=== PATIENT | female | born 1985 | race Hispanic/Latino ===

== ENCOUNTER 2016-07-04 21:27 | Emergency (ER) | payer MEDICAID ==
[2016-07-04] MEDS ORDERED: LIDOCAINE VISCOUS 2% 15 ML UDC ONE ×2 (21:47→22:30)
[2016-07-04] MEDS ORDERED: ONDANSETRON HCL 4 MG/2 ML VIAL ONE ×2 (21:47→23:26)
[2016-07-04] MEDS ORDERED: FAMOTIDINE IN SALINE, ISO-OSM 50 ML IV ONE (21:47)
[2016-07-04] MEDS ORDERED: MAG-AL PLUS XS SUSP 30 ML UDC ONE ×2 (21:47→22:30)
[2016-07-04 22:15] LABS: URINE APPEARANCE CLOUDY; URINE BILIRUBIN 1.0 mg/100ml (2+) (NEGATIVE); URINE BLOOD 250 Ery/uL (3+) (NEGATIVE); URINE COLOR YELLOW; URINE GLUCOSE 100mg/dL (NEGATIVE); URINE KETONE 10mg/dL (1+) (NEGATIVE); URINE LEUKOCYTE ESTERASE TRACE (NEGATIVE); URINE NITRITE NEGATIVE (NEGATIVE); URINE PH 8.5 (5-7); URINE PROTEIN 100mg/dL (2+) (NEG - TRACE); URINE SPECIFIC GRAVITY 1.015 (0.001-1.035); URINE UROBILINOGEN 4mg/dL (NEG-1mg/dL); URINE WBC 0-4/hpf (0-4/hpf)
[2016-07-04 22:16] LABS: URINE AMORPHOUS SEDIMENT UP TO 25%/lpf (Up to 25%); URINE BACTERIA >50 ORGANISMS/hpf (<10/hpf); URINE MUCUS UP TO 50%/lpf (Up to 25%)
[2016-07-04 22:27] LABS: BASOPHILS 0.2 % (0.0-2.0); EOSINOPHILS 2.5 % (0.0-6.0); EOSINOPHILS# 0.3 X 10^3uL (0.0-0.4); HEMOGLOBIN 16.5 g/dL (12.0-16.0); LYMPHOCYTES# 1.1 X 10^3uL (0.8-3.8); MEAN CELL VOLUME 88.8 fL (84.0-102.0); MEAN CORPUS. HGB CONCENTRATION 34.4 g/dL (32.0-36.0); MEAN CORPUSCULAR HEMOGLOBIN 30.5 pg (29.0-35.0); MEAN PLATELET VOLUME 8.9 fL (7.4-10.4); MONOCYTES 4.9 % (2.0-10.0); MONOCYTES# 0.5 X 10^3uL (0.2-1.0); NEUTROPHILS 82.4 % (54.0-75.0); NEUTROPHILS# 8.9 X 10^3uL (2.6-6.7); PLATELET COUNT 251 X 10^3uL (130-440); RED CELL DISTRIBUTION WIDTH 11.9 % (11.5-14.5); WHITE BLOOD COUNT 10.8 X 10^3uL (3.9-10.7)
[2016-07-04 22:38] LABS: ALBUMIN 4.8 g/dL (3.5-5.0); ALKALINE PHOSPHATASE 78 U/L (38-126); ALT 62 U/L (9-52); AST 84 U/L (14-36); BILIRUBIN, DIRECT 0.4 mg/dL (0.0-0.4); BLOOD UREA NITROGEN 15 mg/dL (7-17); CALCIUM 9.3 mg/dL (8.4-10.2); CHLORIDE 104 mmol/L (98-107); CREATININE 0.7 mg/dL (0.5-1.0); EST GLOMERULAR FILTRATION RATE > 60 mL/min; GLUCOSE 101 mg/dL (70-100); LIPASE 108 U/L (23-300); POTASSIUM 3.8 mmol/L (3.5-5.1); SODIUM 144 mmol/L (137-145); TOTAL PROTEIN 8.4 g/dL (6.3-8.2)
[2016-07-04] MEDS ORDERED: HYDROmorphone HCL 1 MG/ML SYR ONE (22:54)
[2016-07-04] MEDS ORDERED: ONDANSETRON ODT PREPAC 4 MG TAB.RAPDIS PO ONE (23:10)
[2016-07-04] MEDS ORDERED: HYDROcodone/APAP PREPAC 5/325 1 TAB TABLET PO ONE (23:11)
--- NOTE | 2016-07-04 23:58 | ER NURSING DOCUMENTATION ---
Nurse's Notes [facility] Name:Romina Haq Age:31 yrs Sex:Female :1985 Arrival Date:07/04/2016 Time:21:27 Bed1 Private MD:Bhumika Mccord Diagnosis:Abdominal Pain, Epigastric Presentation: 07/04 21:29 Acuity: ROMINA 3 21:42 Presenting complaint: Patient states: Pt has had epigastric pain since this AM that is rh persistent with nausea. Transition of care: Home. 21:42 Method Of Arrival: Walk In Triage Assessment: 21:42 General: Appears in no apparent distress, Behavior is cooperative. Pain: Complains of rh pain in epigastric area, right upper quadrant and left upper quadrant. EENT: Oral mucosa is moist. Neuro: Level of Consciousness is awake, alert, obeys commands. Cardiovascular: Capillary refill < 3 seconds Chest pain is denied. Respiratory: Airway is patent. GI: Abdomen is non- distended Abdomen is tender to palpation in epigastric area, right upper quadrant and left upper quadrant Reports nausea, Denies diarrhea, vomiting. : Denies burning with urination, urinary frequency. Derm: Skin is intact, is healthy with good turgor, Skin is pink, warm & dry. Musculoskeletal:. AUDIO DIRECTOR: 21:43 LMP 07/04/2016 Historical: - Allergies: No known drug Allergies; - Home Meds: 1. None - PMHx: None; - PSHx: None; - Tetanus: < 10 years. - Ebola Screening: : Patient negative for fever greater than or equal to 101.5 degrees Fahrenheit, and additional compatible Ebola Virus Disease symptoms. - Immunization history: Flu Vaccine None. - Social history: Smoking status: Patient states was never smoker of tobacco. Screenin:45 Infectious Disease Risk None. Abuse screen: Denies threats or abuse. Denies injuries rh from another. Nutritional screening: No deficits noted. Assessment: 21:45 See Triage Assessment done by same RN. Vital Signs: 19:40 BP 115 / 75; Pulse 78; Resp 16; Temp 97.9; Pulse Ox 98% on R/A; Weight 58.97 kg; Height rh 5 ft. 0 in. (152.40 cm); Pain 9/10; 23:56 BP 103 / 48; Pulse 68; Resp 15; Pulse Ox 97% on R/A; Pain 4/10; rh 19:40 Body Mass Index 25.39 (58.97 kg, 152.40 cm) rh ED Course: 21:28 Patient arrived in ED. em2 21:28 Bhumika Mccord MD is Private Physician. em2 21:29 Rachael Hargrove is Primary Nurse. rh 21:29 Triage completed. rh 21:39 Mehrdad Kay MD is Attending Physician. sc 21:39 Inserted saline lock: 20 gauge in right antecubital area and blood collected. la 21:40 Notified ED Physician of patient's arrival and chief complaint. Dr. Kay notified. rh 21:45 Valuables Remains with patient Patient has correct armband on for positive rh identification. Bed in low position. Call light in reach. Side rails up X 1. Family accompanied patient. 22:48 Bhumika Mccord MD is Referral Physician. sc Administered Medications: 21:42 Drug: Zofran 4 mg; Route: IVP; Infused Over: 2 mins; Site: right antecubital; rh 22:07 Follow up: Response: Nausea is decreased rh 21:45 Drug: GI Cocktail w/o Donnatol - (Maalox Suspension 30 ml, Lidocaine Liquid 2 % 15 ml); rh Route: PO; 22:07 Follow up: Response: Pain is decreased rh 21:45 Drug: Pepcid 20 mg; Route: IVPB; Site: right antecubital; rh 22:07 Follow up: IV Status: Completed infusion; IV Intake: 50ml rh 22:23 Drug: GI Cocktail w/o Donnatol - (Maalox Suspension 30 ml, Lidocaine Liquid 2 % 15 ml); rh Route: PO; 22:49 Follow up: Response: No change in condition rh 22:49 Drug: Dilaudid 1 mg; Route: IVP; Site: right antecubital; rh 22:57 Follow up: Response: Pain is decreased rh 23:06 Drug: HYDROcodone-acetaminophen (5mg/325 mg) 1-2 tabs 1 tabs; Route: PO; rh 23:07 Follow up: Response: Pharmacy closed - take home med pack rh 23:06 Drug: Zofran 1 tablet; Route: PO; rh 23:07 Follow up: Response: Pharmacy closed - take home med pack rh 23:20 Drug: Zofran 4 mg; Route: IVP; Infused Over: 2 mins; Site: right antecubital; 23:21 Follow up: Response: Nausea is decreased rh Intake: 22:07 IV: 50ml; Total: 50ml. Outcome: 22:49 Discharge ordered by . wv 23:56 Discharged to home ambulatory, with significant other. 23:56 Condition: improved 23:56 Discharge Assessment: Patient awake, alert and oriented x 3. No cognitive and/or functional deficits noted. Patient verbalized understanding of disposition instructions. 23:56 Discharge instructions given to patient, Instructed on discharge instructions, follow up and referral plans. medication usage, Demonstrated understanding of instructions, PT and significant other instructed to schedule Ultra Sound tomorrow and follow up with Dr. Mccord 23:56 IV D/Akash 23:57 Patient left the ED. 07/06 13:57 Discharge F/U Call: Unable to reach: no answer st Signatures: Viktoriya Adan RN Mehrdad Chapman MD MD sc Meinking-elias, Kimberly em2 Divina Lion Rachel
--- NOTE | 2016-07-04 23:58 | ER PHYSICIAN DOCUMENTATION ---
Physician Documentation Name:Romina Haq Age:31 yrs Sex:Female :1985 Arrival Date:07/04/2016 Time:21:27 Bed1 Private MD:Bhumika Mccord ED MajoalonaMehrdad Disposition: 07/04/16 22:49 Discharged to Home/Self Care. Impression: Abdominal Pain, Epigastric. - Condition is Fair. - Discharge Instructions: ABDOMINAL PAIN, Unknown Cause, (Female). - Medical Reconciliation form form. - Follow up: Bhumika Mccord MD; When: 2 - 3 days; Reason: Continuance of care. - Problem is new. - Symptoms have improved. HPI: 07/04 22:45 This 31 yrs old Female presents to ER via Walk In with complaints of Abdominal sc Pain. 22:45 The patient presents with abdominal pain in the epigastric area. Onset: The sc symptoms/episode began/occurred this morning. The symptoms do not radiate. Associated signs and symptoms: Pertinent positives: nausea, Pertinent negatives: constipation, diarrhea, dysuria, vaginal discharge, vomiting, vomiting blood. The symptoms are described as achy, burning. Severity of pain: At its worst the pain was moderate in the emergency department the pain is unchanged. The patient has experienced similar episodes in the past, a few times, but today's symptoms are worse. ULTRASOUND COORDINATOR: 21:43 LMP 07/04/2016 rh Historical: - Allergies: No known drug Allergies; - Home Meds: 1. None - PMHx: None; - PSHx: None; - Tetanus: < 10 years. - Ebola Screening: : Patient negative for fever greater than or equal to 101.5 degrees Fahrenheit, and additional compatible Ebola Virus Disease symptoms. - Immunization history: Flu Vaccine None. - Social history: Smoking status: Patient states was never smoker of tobacco. ROS: 22:46 Constitutional: Negative for fever, chills, and weight loss. sc Eyes: Negative for injury, pain, redness, and discharge. Neck: Negative for injury, pain, and swelling. Cardiovascular: Negative for chest pain, palpitations, and edema. Respiratory: Negative for shortness of breath, cough, wheezing, and pleuritic chest pain. Back: Negative for injury and pain. Skin: Negative for injury, rash, and discoloration. 22:46 Neuro: Negative for headache, weakness, numbness, tingling, and seizure. sc 22:46 Abdomen/GI: Positive for abdominal pain, nausea. Exam: Constitutional: This is a well developed, well nourished patient who is awake, alert, and in no acute distress. Head/Face: Normocephalic, atraumatic. Eyes: Pupils equal round and reactive to light, extra-ocular motions intact. Lids and lashes normal. Conjunctiva and sclera are non-icteric and not injected. Cornea within normal limits. Periorbital areas with no swelling, redness, or edema. ENT: Nares patent. No nasal discharge, no septal abnormalities noted. Tympanic membranes are normal and external auditory canals are clear. Oropharynx with no redness, swelling, or masses, exudates, or evidence of obstruction, uvula midline. Mucous membranes moist. Neck: Trachea midline, no thyromegaly or masses palpated, and no cervical lymphadenopathy. Supple, full range of motion without nuchal rigidity, or vertebral point tenderness. No meningismus. Cardiovascular: Regular rate and rhythm with a normal S1 and S2. No gallops, murmurs, or rubs. Normal PMI, no JVD. No pulse deficits. Respiratory: Lungs have equal breath sounds bilaterally, clear to auscultation and percussion. No rales, rhonchi or wheezes noted. No increased work of breathing, no retractions or nasal flaring. Back: No spinal tenderness. No costovertebral tenderness. Full range of motion. Skin: Warm, dry with normal turgor. Normal color with no rashes, no lesions, and no evidence of cellulitis. 22:47 Neuro: Awake and alert, GCS 15, oriented to person, place, time, and situation. sc Cranial nerves II-XII grossly intact. Motor strength 5/5 in all extremities. Sensory grossly intact. Cerebellar exam normal. Normal gait. 22:47 Abdomen/GI: Inspection: abdomen appears normal, Bowel sounds: normal, Palpation: soft, mild abdominal tenderness, in the epigastric area, Liver: no appreciated palpable abnormalities, Hernia: not appreciated. Vital Signs: 19:40 BP 115 / 75; Pulse 78; Resp 16; Temp 97.9; Pulse Ox 98% on R/A; Weight 58.97 kg; Height rh 5 ft. 0 in. (152.40 cm); Pain 9/10; 23:56 BP 103 / 48; Pulse 68; Resp 15; Pulse Ox 97% on R/A; Pain 4/10; rh 19:40 Body Mass Index 25.39 (58.97 kg, 152.40 cm) rh MDM: 22:02 Patient medically screened. pr 22:47 Differential diagnosis: Cholelithiasis, gastroesophageal reflux disease, Hepatitis, sc non-specific abd pain. Data reviewed: vital signs, nurses notes, old medical records, lab test result(s), and as a result, I will continue to observe the patient, order radiologic studie(s), ultrasound. Counseling: I had a detailed discussion with the patient and/or guardian regarding: the historical points, exam findings, and any diagnostic results supporting the discharge/admit diagnosis, lab results, the need for outpatient follow up, with the patient's primary care provider. Counseling: I had a detailed discussion with the patient and/or guardian regarding: to return to the emergency department if symptoms worsen or persist or if there are any questions or concerns that arise at home. Medication response: The patient's symptoms have improved. 07/04 22:17 Order name: HCG, URINE; Complete Time: 22:44 EDMS 07/04 22:44 Interpretation: Normal. pr 07/04 22:17 Order name: UA W/ MICRO -CULTURE IF IND; Complete Time: 22:44 EDMS 02 22:44 Interpretation: Normal Except: contaminated specimen. pr 07/04 22:40 Order name: CBC AUTO DIF, MDIF/RMOR IF IND; Complete Time: 22:45 EDMS 02 22:44 Interpretation: Normal Except: WHITE BLOOD COUNT 10.8; NEUTROPHILS 82.4; elevated wbc sc with left shift. 07/04 22:40 Order name: BASIC METABOLIC PANEL; Complete Time: 22:45 EDMS 02 22:44 Interpretation: Normal. pr 02 22:40 Order name: HEPATIC PANEL; Complete Time: 22:45 EDMS 02 22:44 Interpretation: Abnormal. pr 07/04 22:40 Order name: LIPASE; Complete Time: 22:45 EDMS 02 22:44 Interpretation: Normal. pr 07/04 21:45 Order name: Iv Saline Lock; Complete Time: 21:45 rh Dispensed Medications: 21:42 Drug: Zofran 4 mg; Route: IVP; Infused Over: 2 mins; Site: right antecubital; rh 22:07 Follow up: Response: Nausea is decreased rh 21:45 Drug: GI Cocktail w/o Donnatol - (Maalox Suspension 30 ml, Lidocaine Liquid 2 % 15 ml); rh Route: PO; 22:07 Follow up: Response: Pain is decreased rh 21:45 Drug: Pepcid 20 mg; Route: IVPB; Site: right antecubital; rh 22:07 Follow up: IV Status: Completed infusion; IV Intake: 50ml rh 22:23 Drug: GI Cocktail w/o Donnatol - (Maalox Suspension 30 ml, Lidocaine Liquid 2 % 15 ml); rh Route: PO; 22:49 Follow up: Response: No change in condition rh 22:49 Drug: Dilaudid 1 mg; Route: IVP; Site: right antecubital; rh 22:57 Follow up: Response: Pain is decreased rh 23:06 Drug: HYDROcodone-acetaminophen (5mg/325 mg) 1-2 tabs 1 tabs; Route: PO; rh 23:07 Follow up: Response: Pharmacy closed - take home med pack rh 23:06 Drug: Zofran 1 tablet; Route: PO; rh 23:07 Follow up: Response: Pharmacy closed - take home med pack rh 23:20 Drug: Zofran 4 mg; Route: IVP; Infused Over: 2 mins; Site: right antecubital; rh 23:21 Follow up: Response: Nausea is decreased rh Signatures: Mehrdad Kay MD MD sc Hofsess, Rachel
== END 2016-07-04 23:58 | disposition home or self-care (01) ==
LOC: ER 21:27
DX: R10.13 Epigastric pain (principal); R11.0 Nausea; R82.99 Other abnormal findings in urine
CPT/HCPCS: 80048; 80076; 81001; 83690; 84703; 85025; 86705; 86709; 86803; 87340; 96365; 96375; 96376; 99283; J1170; J2405

== ENCOUNTER 2016-07-19 09:04 | Observation (INO) | payer MEDICAID ==
[2016-07-19] MEDS ORDERED: LIDOCAINE HCL 1% 20 ML VIAL SUBCUT ONE (09:42)
[2016-07-19] MEDS ORDERED: ACETAMINOPHEN 1,000 MG/100 ML VIAL IV SCH (09:45)
[2016-07-19] MEDS ORDERED: FAMOTIDINE IN SALINE, ISO-OSM 20 MG/50 ML PIGGYBACK IV SCH (09:45)
[2016-07-19] MEDS ORDERED: SUCCINYLCHOLINE CHLORIDE 200 MG/10 ML VIAL ONE (09:50)
[2016-07-19] MEDS ORDERED: ROCURONIUM BROMIDE 50 MG/5 ML VIAL IV ONE (09:50)
[2016-07-19] MEDS ORDERED: FENTANYL 250 MCG/5 ML VIAL ONE (09:50)
[2016-07-19] MEDS ORDERED: MIDAZOLAM HCL 2 MG/2 ML SYR IV ONE (09:50)
[2016-07-19] MEDS ORDERED: KETOROLAC TROMETHAMINE 30 MG/ML VIAL ONE (09:51)
[2016-07-19] MEDS ORDERED: ONDANSETRON HCL 4 MG/2 ML VIAL ONE (09:51)
[2016-07-19] MEDS ORDERED: DEXAMETHASONE 4 MG/ML VIAL ONE (09:51)
[2016-07-19] MEDS ORDERED: MIDAZOLAM HCL 2 MG/2 ML VIAL ONE (09:52)
[2016-07-19] MEDS ORDERED: BUPIVACAINE HCL/PF 0.25% 10 ML VIAL INJ ONE (09:58)
[2016-07-19] MEDS ORDERED: LACTATED RINGERS 1,000 ML IV SCH ×3 (10:00→12:24)
[2016-07-19] MEDS ORDERED: SEVOFLURANE 250 ML BTL INHALATION ONE (10:23)
--- NOTE | 2016-07-19 12:16 | PROCEDURE NOTE: Gen Surgery ---
General Surgery Procedure Note - Date of Encounter Date of Encounter: 07/19/16 - Brief Operative Note (1) Chronic cholecystitis due to cholelithiasis with choledocholithiasis Date of procedure: 07/19/16 Pre-Op Diagnosis: chronic cholelithiasis Post-op diagnosis: same Procedure: Lap. choly Anesthesia Type: General Physician: SHANTAL SHAW Pathology: sent X-ray taken: No Images viewed by surgeon: No Sponge and instrument counts: correct Condition: stable Disposition: floor
[2016-07-19] MEDS ORDERED: ONDANSETRON HCL 4 MG/2 ML VIAL IV PRN (12:24)
[2016-07-19] MEDS ORDERED: ACETAMINOPHEN 325 MG TABLET PO PRN (12:24)
[2016-07-19] MEDS ORDERED: MORPHINE SULFATE 10 MG/ML SYR IV PRN (12:24)
[2016-07-19] MEDS ORDERED: FENTANYL 100 MCG/2 ML VIAL IV PRN (12:24)
[2016-07-19] MEDS: HYDROmorphone HCL 1 MG/ML SYR IV PRN ×7 (12:32→22:41)
[2016-07-19] MEDS: ONDANSETRON HCL 4 MG/2 ML VIAL IV PRN ×3 (14:20→22:41)
--- NOTE | 2016-07-19 17:18 | OPERATIVE REPORT ---
DATE OF SURGERY: 07/19/16 SURGEON: Mehrdad Larkin MD ANESTHESIA: General endotracheal by Edwin Coulter CRNA. PREOPERATIVE DIAGNOSIS: Chronic cholecystitis. POSTOPERATIVE DIAGNOSES: Chronic cholecystitis. PROCEDURE PERFORMED: Laparoscopic cholecystectomy. FINDINGS: At the time of laparoscopy, there were no intraabdominal adhesions. The gallbladder wall was slightly thickened. She had a very short cystic duct. The cystic duct, common duct junction was visualized. On further visualization, there was no inguinal hernias noted. There were no other intraabdominal pathology was noted with exception of an enlarged left ovary consistent with ovarian cyst. SUMMARY: The patient was taken to the operating room and placed in the supine position. She was given a smooth induction of general anesthesia via the endotracheal tube. Her abdomen was prepped with a ChloraPrep solution. Time out was called and the correct patient, correct preoperative medications and correct procedure were verified. Once 3 minutes time had elapsed, draping occurred. Local was then instilled in the umbilical region. The skin was sharply incised. There was a small umbilical hernia. This was grasped with a Michelle clamp and a 5 mm trocar was placed with the Optiview technique. The abdomen was allowed to inflate. In the subxiphoid region, a 12-mm trocar was placed under direct vision. Two 5-mm trocars were placed in the right side of the abdomen. The gallbladder was initially dissected in a dome-down fashion. The cystic duct and the cystic artery were then carefully dissected out. It was noted that the cystic duct was quite short. The artery was doubly clipped on the patient's side and sharply divided. The duct was then the last structure divided with 2 clips on the patient's side, and 1 clip on the patients side. The liver bed was checked, and areas of bleeding was controlled with a cautery. The gallbladder was then placed in a specimen retrieval bag and pulled out through the subxiphoid port site. The incision had to be enlarged, because she had small soft stones, and the gallbladder was fairly full of them. The right sided rectus sheath and peritoneum were incised and appeared that a vessel in the right rectus muscle was divided in the process. The gallbladder was completely removed. There was spillage through the bag onto the skin but not into the wound itself. The abdomen was allowed to deflate. The fascia in the subxiphoid port site was closed with a running 2-0 PDS suture. The area of bleeding was clipped. The skin was then closed with running subcuticular 4-0 Monocryl. The laparoscope was then reintroduced. The abdomen was allowed to inflate. The remaining incisions were closed with running subcuticular 4-0 Monocryl. Steri- Strips and dressing were then applied, anesthesia was reversed and the patient was taken from the operating room to the recovery room. RYAN
[2016-07-20] MEDS: HYDROcodone/APAP 5/325 MG 1 TAB TABLET PO PRN ×2 (01:39→08:25)
[2016-07-20 03:00] VITALS: RESP 14
[2016-07-20 06:49] VITALS: BP 96/57; PULSE 90; TEMP 99.3; O2SAT 91
--- NOTE | 2016-07-20 08:27 | DC SUMMARY: Gen Surgery Note ---
Discharge Summary: Surg/OB Provider: Date of Admission: 07/19/16 Admitting Provider: SHANTAL SHAW MD Attending Provider: SHANTAL SHAW MD Discharging Provider: SHANTAL SHAW MD Primary Care Provider: Discharge Date: 07/20/16 - Diagnosis (1) Chronic cholecystitis due to cholelithiasis with choledocholithiasis Status: Resolved Hospital Course: Ms. LUJAN is a 31 year old female Discharge - Patient/Caregiver Discharge Instructions Activity Level: no heavy lifting Diet: as tolerated Follow up: SHANTAL SHAW MD [ACTIVE (Staff Physician)] - 07/27/16 10:30 am Overall discharge status: patient is progressing back to baseline Gen Surgery: Discharge Exam - Latest Vital Signs and I&O Latest Vital Signs/I&O: Vital Signs Temp 37.4 C 07/20/16 06:47 Pulse 90 07/20/16 06:47 Resp 14 07/20/16 06:47 BP 96/57 07/20/16 06:47 Pulse Ox 91 07/20/16 06:47 Intake & Output 07/19/16 07/20/16 07/20/16 17:59 05:59 17:59 Intake Total 1999 936 1409 Output Total 50 1520 Balance 1950 -584 1409 Weight 55.79 kg Intake: IV 2228 148 0199 Right Hand 7854 708 8066 Oral 100 370 Output: Urine 0 1200 Emesis 320 Other 50 Other: Urine Appearance Clear Urine Color Yellow Voiding Method Toilet Toilet # Voids 1 # Bowel Movements 0 - Exam General physical exam: no distress Abdomen exam: tender (along the incisions), bowel sounds (hypoactive), other ( wounds look ok) Discharge Summary Data - Medication History Medication History: Home Medications Other [No Known Home Medications] 07/19/16 Inpatient Medications 07/19/16 12:24 Acetaminophen [Tylenol] 650 mg PO Q6H PRN HYDROcodone/APAP 5/325 MG [[place]] 1 tab PO Q4H PRN HYDROmorphone HCL [Dilaudid] 0.5 - 1 mg IV Q1H PRN Lactated Ringers [Lr 1000 ml Bag] 1,000 ml IV CONT Ondansetron HCl [Zofran] 4 mg IV Q4H PRN Procedures and tests throughout hospitalization: Pending Orders 07/18/16 11:02 Anesthesia Type . NPO After midnight 0000 Pre-op by anesthesia . Resuscitation Status Routine 07/19/16 09:42 Anesthesia Type . Insert Peripheral IV ONCE 07/19/16 12:24 Admit: Observation Routine Dressing Change PRN Insert Matthew Catheter - PRN PRN Notify Anesthesia . Sequential Compression Device WHILE IN BED Titrate Oxygen TITRATE B/W 90-95% Vital Signs ROUTINE VITALS (Q4H) Acetaminophen [Tylenol] 650 mg PO Q6H PRN HYDROcodone/APAP 5/325 MG [[place]] 1 tab PO Q4H PRN HYDROmorphone HCL [Dilaudid] 0.5 - 1 mg IV Q1H PRN Lactated Ringers [Lr 1000 ml Bag] 1,000 ml IV CONT Ondansetron HCl [Zofran] 4 mg IV Q4H PRN 07/19/16 20:00 Transfer to Floor PER PROTOCOL 07/19/16 Dinner Regular [DIET]
--- NOTE | 2016-07-26 12:54 | PREOPERATIVE H&P ---
History of Present Illness (Mehrdad Larkin M.D.; 07/17/2016 3:46 PM) The patient is a 31 year old female who presents with abdominal pain. The onset of the pain has been acute and has been occurring in an intermittent pattern. The course has been recurrent. The pain is described as a moderate sharp pain. The pain is described as being located in the right upper quadrant and epigastrium and does not radiate. The pain is aggravated by certain foods. Previous evaluations have included ultrasound and CT scan. The patient spoke only a little bit of Pan[place]ian and I did not have a finance business partner today so our conversation was limited. Problem List/Past Medical (Mehrdad Larkin M.D.; 07/17/2016 3:46 PM) Calculus of bile duct without cholecystitis and without obstruction (K80.50) Insomnia (G47.00) Generalized abdominal pain (R10.84) Nausea and vomiting, intractability of vomiting not specified, unspecified vomiting type (R11.2) Abdominal wall mass of left upper quadrant (R19.02) Abnormal LFTs (R79.89) 07/14: AST 84, ALT 62. Hepatitis profile negative. Fatigue (R53.83) Varicella (052.9) (B01.9) resolved Easy bruising (R23.8) Cough (R05) Acne (L70.9) Nausea (R11.0) Hepatitis A (070.1) as child Abdominal pain, right upper quadrant (789.01) (R10.11) Chronic cholecystitis (K81.1) Allergies (Roberta Chapman R.N.; 07/17/2016 3:43 PM) Penicillins (Amoxicillin, Augmentin, Unasyn...)07/05/2016 Hives. Family History (Roberta Chapman R.N.; 07/17/2016 3:43 PM) Sister Healthy Mother HTN Father Pre-diabetes Brother Healthy Breast Cancer Paternal Aunt. Social History (Roberta Chapman R.N.; 07/17/2016 3:43 PM) Non Smoker/No Tobacco Use Current Household Members Biologic mother, Biologic father. Son Current work status [employer] Alcohol use Drinks Rarely. Tobacco use Never smoker. Medication History (Roberta Chapman R.N.; 07/17/2016 3:43 PM) Zofran ODT (4MG Tablet Disperse, 1 (one) Tablet Disperse Oral every 4-6 hours as needed, Taken starting 07/05/2016) Active. (For nausea and vomiting.) Implanon (68MG Implant, Subcutaneous) Active. (Placed 2011) Medications Reconciled / History (Mehrdad Larkin M.D.; 07/17/2016 3:46 PM) Father of baby (1st) Lukas Krishnan. 1. Maternal past medical history Hepatitis. Family history Cancer, Diabetes mellitus, Multiple gestations. Past Surgical History (Roberta Chapman R.N.; 07/17/2016 3:43 PM) None Other Problems (Mehrdad Larkin M.D.; 07/17/2016 3:46 PM) Health education/counseling (Z71.89) Tdap 82789 (Z23) COUNSELING NOS (V65.40) (Z71.9) Sore throat (J02.9) Review of Systems (Mehrdad Larkin M.D.; 07/17/2016 4:01 PM) General Present- Feeling well. Not Present- Chills and Fever. Respiratory Not Present- Cough and Lung Problems. Cardiovascular Not Present- Heart Problems. Gastrointestinal Not Present- GI Problems. Female Genitourinary Not Present- Dysuria. Endocrine Not Present- Diabetes and Thyroid Problems. Vitals (Roberta Chapman R.N.; 07/17/2016 3:43 PM) 07/17/2016 3:41 PM Weight: 123.5 lb Height: 58.75in Body Surface Area: 1.5 m Body Mass Index: 25.16 kg/m Temp.: 99F(Temporal) Pulse: 80 (Regular) P.OX: 94% (Room air) BP: 90/64 (Sitting, Left Arm, Standard) Physical Exam (Mehrdad Larkin M.D.; 07/17/2016 4:02 PM) General Mental Status-Alert. General Appearance-Not Anxious. Orientation-Disoriented X3. Chest and Lung Exam Chest and lung exam reveals -Clear. Cardiovascular Cardiovascular examination reveals -RRR, No murmurs present. Abdomen Inspection Inspection of the abdomen reveals - Soft, Non-tender and Bowel sounds present. Assessment & Plan (Mehrdad Larkin M.D.; 07/17/2016 3:59 PM) Abdominal pain, right upper quadrant (R10.11) Calculus of bile duct without cholecystitis and without obstruction (K80.50) Current Plans LAP CHOLY (21538) Started Hydrocodone-Acetaminophen 5-325MG, 1 (one) Tablet every four hours, as needed, #15, 5 days starting 07/17/2016, No Refill. Note:The risks of common duct injury, retained common duct stones, bleeding, bile leak and damage to other organs was discussed. We also discussed the laproscopic approach to this operation as well as the open approach. It was understood that an open procedure may be needed. The anesthesia was touched upon as well as the most common side effects. Medical problems that may complication the procedure were also reviewed. Post op instructions were provided. A post op appointment was made. A script for barnard was written. Signed by Mehrdad Larkin M.D. (07/17/2016 4:03 PM) RYAN
== END 2016-07-20 08:26 | disposition home or self-care (01) ==
LOC: SDS 09:04 → IN 13:39
PROVIDERS: ADMIT Surgery; ATTEND Surgery
DX: K81.1 Chronic cholecystitis (principal); G47.00 Insomnia, unspecified
CPT/HCPCS: 96376; G0378; J1170; J1885; J2250; J2405; J7120

== ENCOUNTER 2016-08-09 16:31 | Emergency (ER) | payer MEDICAID ==
[2016-08-09 17:04] LABS: ALBUMIN 4.9 g/dL (3.5-5.0); ALKALINE PHOSPHATASE 79 U/L (38-126); ALT 43 U/L (9-52); AST 26 U/L (14-36); BILIRUBIN, DIRECT 0.2 mg/dL (0.0-0.4); BILIRUBIN, TOTAL 0.8 mg/dL (0.2-1.3); BLOOD UREA NITROGEN 11 mg/dL (7-17); CALCIUM 9.4 mg/dL (8.4-10.2); CHLORIDE 105 mmol/L (98-107); CREATININE 0.7 mg/dL (0.5-1.0); EST GLOMERULAR FILTRATION RATE > 60 mL/min; GLUCOSE 89 mg/dL (70-100); LIPASE 118 U/L (23-300); POTASSIUM 3.7 mmol/L (3.5-5.1); SODIUM 140 mmol/L (137-145); TOTAL PROTEIN 8.4 g/dL (6.3-8.2)
[2016-08-09 17:07] LABS: BASOPHIL# 0.1 X 10^3uL (0.0-0.1); BASOPHILS 0.8 % (0.0-2.0); EOSINOPHILS 3.7 % (0.0-6.0); EOSINOPHILS# 0.4 X 10^3uL (0.0-0.4); HEMATOCRIT 43.9 % (36.0-48.0); LYMPHOCYTES 26.3 % (20.0-40.0); LYMPHOCYTES# 2.6 X 10^3uL (0.8-3.8); MEAN CELL VOLUME 88.5 fL (80.0-100.0); MEAN CORPUSCULAR HEMOGLOBIN 30.1 pg (29.0-35.0); MEAN PLATELET VOLUME 8.2 fL (7.4-10.4); MONOCYTES 6.1 % (2.0-10.0); MONOCYTES# 0.6 X 10^3uL (0.2-1.0); NEUTROPHILS 63.1 % (54.0-75.0); NEUTROPHILS# 6.3 X 10^3uL (2.6-6.7); PARTIAL THROMBOPLASTIN TIME 27 sec (24-38); PLATELET COUNT 276 X 10^3uL (130-440); RED BLOOD COUNT 4.96 X 10^6uL (4.20-6.10)
--- NOTE | 2016-08-09 18:59 | ER PHYSICIAN DOCUMENTATION ---
Physician Documentation [facility] Name:Romina Haq Age:31 yrs Sex:Female :1985 Arrival Date:08/09/2016 Time:16:31 Bed3 Private MD:Bhumika Mccord EDCornelio urbano Disposition: 08/09/16 18:40 Discharged to Home/Self Care. Impression: Postoperative pain- Chronic. - Condition is Good. - Discharge Instructions: PAIN PostOp - POST OP WOUND CHECK, Pain. - Prescriptions for Percocet 5- 325 mg Oral Tablet - take 1 tablet by ORAL route every 6 hours As needed; 20 tablet. Reglan 10 mg Oral Tablet - take 1 tablet by ORAL route every 6 hours take 30 minutes before meals and at bedtime; 20 tablet. Zofran 4 mg Oral Tablet - take 1 tablet by ORAL route every 12 hours .; 20 tablet. - Medical Reconciliation form form. - Follow up: Mehrdad Larkin MD; When: next week; Reason: Continuance of care. - Problem is new. - Symptoms have improved. HPI: 08/09 18:57 This 31 yrs old Female presents to ER via Private Vehicle with complaints of jm Rectal Bleeding. 18:57 The patient presents to the emergency department with bleeding from the rectum/anus. jm Onset: The symptom(s)/episode began/occurred yesterday, but none since . Associate signs and symptoms: Pertinent positives: abdominal pain. The patient has not experienced similar symptoms in the past. The patient has been recently seen by a physician: the patient's primary care provider, Dr. Mccord, who sent pt to the ER for rectal bleeding, hypotension and continued post op pain from a lap malachi done 07/[address] Larkin. . Pt was sent here for above reasons. Pt denies continued rectal bleeding. She is more concerned about the continued post op pain. . Historical: - Allergies: PENICILLINS; - Home Meds: 1. Zofran Oral 2. Oxycodone HCl Oral - PMHx: None; - PSHx: Cholecysectomy; - Tetanus: < 10 years. - Ebola Screening: : Patient denies exposure to infectious person. Patient denies travel to an Ebola-affected area in the 21 days before illness onset. . ROS: 19:03 Constitutional: Negative for fatigue, fever. jm 19:03 Abdomen/GI: Positive for abdominal pain, nausea, Negative for vomiting, diarrhea. 19:03 Skin: Negative for rash, swelling. 19:03 Neuro: Negative for visual changes, weakness. 19:03 All other systems are negative. Exam: 19:03 Constitutional: The patient appears alert, awake, comfortable. 19:03 Abdomen/GI: Bowel sounds: diminished, Palpation: moderate abdominal tenderness, in the epigastric area- near the scar. . 19:03 Skin: Appearance: Color: pink, wound is CDI. Vital Signs: 16:49 BP 113 / 63; Pulse 70; Resp 16; Pulse Ox 96% ; Pain 8/10; st 18:57 BP 96 / 59; Pulse 63; Pulse Ox 97% ; Pain 3/10; st MDM: 16:35 Patient medically screened. 19:06 Differential diagnosis: post op pain. Obstruction. Data reviewed: vital signs, nurses notes, old medical records, lab test result(s), radiologic studies, and as a result, I will discharge patient. Test interpretation: by ED physician or midlevel provider: plain radiologic studies. Counseling: I had a detailed discussion with the patient and/or guardian regarding: the historical points, exam findings, and any diagnostic results supporting the discharge/admit diagnosis, lab results, radiology results, the need for outpatient follow up, a general surgeon. Response to treatment:. ED course: X-ray show no obstruction and labs normal. Will try Reglan for nausea and Percocet for pain. Pt can see Dr. Larkin next week jeanette he returns from vacation. . 08/09 17:06 Order name: BASIC METABOLIC PANEL; Complete Time: 17:12 [facility] 08/09 17:06 Order name: HEPATIC PANEL; Complete Time: 17:12 [facility] 08/09 17:06 Order name: LIPASE; Complete Time: 17:12 [facility] 08/09 17:10 Order name: PROTIME/INR; Complete Time: 17:12 [facility] 08/09 17:10 Order name: PARTIAL THROMBOPLASTIN TIME; Complete Time: 17:12 [facility] 08/09 17:11 Order name: CBC AUTO DIF, MDIF/RMOR IF IND; Complete Time: 17:12 [facility] 08/09 16:37 Order name: I & O; Complete Time: 16:51 08/09 16:37 Order name: NPO; Complete Time: 16:51 [facility] 08/09 16:37 Order name: Pulse Ox Continuous; Complete Time: : [facility] Dispensed Medications: No medications were administered Signatures: Viktoriya Adan, Cornelio Mauricio RN, MD MD jm
--- NOTE | 2016-08-09 18:59 | ER NURSING DOCUMENTATION ---
Nurse's Notes [facility] Name:Romina Haq Age:31 yrs Sex:Female :1985 Arrival Date:08/09/2016 Time:16:31 Bed3 Private MD:Bhumika Mccord Diagnosis:Postoperative pain- Chronic Presentation: 08/09 16:40 Acuity: ROMINA 3 st 16:43 Presenting complaint: Patient states: pt states with help of Green[place]ic speaking dado operator, that she has had epigastric pain since having her gallbladder out on Jul 19. pt also had one episode of bright red with her stool. pt has had normal BMs since. Transition of care: [facility]. 16:43 Method Of Arrival: Private Vehicle st Triage Assessment: 16:47 General: Appears in no apparent distress, Behavior is cooperative. Pain: Complains of st pain in epigastric area Pain currently is 8 out of 10 on a pain scale. Is. 16:49 Cardiovascular: No deficits noted. Respiratory: No deficits noted. GI: Abdomen is flat, st non- distended Abd is soft X 4 quads Abdomen is tender to palpation in epigastric area. Injury Description: surgical incision healing well. Historical: - Allergies: PENICILLINS; - Home Meds: 1. Zofran Oral 2. Oxycodone HCl Oral - PMHx: None; - PSHx: Cholecysectomy; - Tetanus: < 10 years. - Ebola Screening: : Patient denies exposure to infectious person. Patient denies travel to an Ebola-affected area in the 21 days before illness onset. . Screenin:50 Infectious Disease Risk None. Abuse screen: no reasons for suspicions noted. st Nutritional screening: No deficits noted. Assessment: 17:45 General: pt resting quietly. She states that her pain is OK.. st Vital Signs: 16:49 BP 113 / 63; Pulse 70; Resp 16; Pulse Ox 96% ; Pain 8/10; st 18:57 BP 96 / 59; Pulse 63; Pulse Ox 97% ; Pain 3/10; st ED Course: 16:10 Inserted peripheral IV: 18 gauge in left antecubital area and blood collected. ma 16:33 Patient arrived in ED. lm3 16:33 Bhumika Mccord MD is Private Physician. lm3 16:36 Cornelio Browning MD is Attending Physician. jm 16:40 Twombly, Summer, RN is Primary Nurse. st 16:[address] 16:40 Inserted peripheral IV: 18 gauge in left antecubital area and blood collected. st 16:51 Valuables Remains with patient Patient has correct armband on for positive st identification. Placed in gown. Pulse Ox - RN Monitoring Only NIBP On - RN Monitoring Only. 17:53 Patient moved to radiology. hz 17:59 Patient moved back from radiology. 18:39 Mehrdad Larkin MD is Referral Physician. miller Administered Medications: No medications were administered Outcome: 18:40 Discharge ordered by . 18:58 Discharged to home ambulatory. st 18:58 Condition: improved 18:58 Discharge instructions given to patient, Instructed on discharge instructions, follow up and referral plans. medication usage, Prescriptions given X 3. 18:59 [address] st 03/16 09:54 Discharge F/U Call: Spoke with: patient. Are you having any pain? no. How are you lp managing your pain? Heat/Ice Have you filled your prescriptions? yes. Have you made a f/u appointment? yes Signatures: Viktoriya Adan, RN Virginia Haddad, RN Parvin Johnson ma, Cornelio Saldaña RN, lp, MD MD jm Zolnowski, Heather Venice Wang
--- NOTE | 2016-08-10 07:09 | RADIOLOGY REPORT ---
Three views of the abdomen demonstrates gas and stool throughout the colon. There is minimal scattered nonspecific small bowel gas. Surgical clips are noted in the right upper quadrant. No pathologic calcifications or free air are identified. IMPRESSION: Minimal nonspecific small bowel gas pattern. MTDD
== END 2016-08-09 18:59 | disposition home or self-care (01) ==
LOC: ER 16:31
DX: G89.28 Other chronic postprocedural pain (principal); R11.0 Nausea; Z90.49 Acquired absence of other specified parts of digestive tract; K62.5 Hemorrhage of anus and rectum
CPT/HCPCS: 74020; 80048; 80076; 83690; 85025; 85610; 85730; 99284